=== PATIENT | female | born 1980 | race Two or more races ===

== ENCOUNTER 2023-07-23 14:04 | Outpatient (CLI) | payer OTHER | END 2023-07-23 14:15 | disposition home or self-care (01) | LOC: RAD 14:04 | PROVIDERS: ATTEND Urology | DX: Z01.811 Encounter for preprocedural respiratory examination (principal) ==

== ENCOUNTER 2023-07-25 06:19 | Day surgery (SDC) | payer OTHER | END 2023-07-26 02:45 | disposition home or self-care (01) | LOC: CIR.AMB 06:19 | PROVIDERS: ATTEND Urology | DX: N39.3 Stress incontinence (female) (male) (principal) | CPT/HCPCS: 57288; C1771 ==